=== PATIENT | female | born 1945 | race Caucasian/White ===

== ENCOUNTER 2022-06-26 20:40 | Emergency (ER) | payer BC, MEDICARE, OTHER ==
[2022-06-26] MEDS ORDERED: Ondansetron 4 MG Tab.DIS PO ONE (21:22)
[2022-06-26 21:33] LABS: CHLORIDE,CL 101 mEq/L (98-106); ESTIMATED GFR 57 mL/min (>=60); SODIUM,NA 140 mEq/L (136-145)
[2022-06-26] MEDS ORDERED: Ondansetron 4 MG/2 ML SDV IVPUSH STA (21:41)
[2022-06-26] MEDS ORDERED: Iopamidol 755 Mg/ML 100 ML Bottle IVPUSH ONE (21:48)
[2022-06-26] MEDS ORDERED: Alum Hydrox/Mag Hydrox/Simeth 30 ML, Lidocaine 2% 15 ML PO ONE ×2 (22:18)
[2022-06-26] MEDS ORDERED: Take Home: Ondansetron 4 MG Tab.DIS, 2 Tab Pack PO ONE (22:49)
== END 2022-06-26 23:15 | disposition home or self-care (01) ==
LOC: CC.ED 20:40
DX: K52.9 Noninfective gastroenteritis and colitis, unspecified (principal)
CPT/HCPCS: 36415; 74177; 80053; 83690; 83735; 85025; 86140; 96374; 99284; 99284-25; A9270-GY; J2405; Q9967